=== PATIENT | male | born 1975 | race Hispanic/Latino ===

== ENCOUNTER → 2024-03-16 | Outpatient (CLI) | payer BC | LOC: M CARPUL 15:14 | PROVIDERS: ATTEND Internal Medicine Pulmonary Disease | DX: R05.9 Cough, unspecified (principal) ==

== ENCOUNTER → 2024-03-25 | Outpatient (CLI) | payer BC ==
[~2024-03-25] MED LIST: METHACHOLINE KIT (6 VIAL.NEB PREMIX) INH ONE
== END ==
LOC: M CARPUL 03-23 14:50 → EDUNIT# 03-23 15:00 → M CARPUL 13:33
PROVIDERS: ATTEND Internal Medicine Pulmonary Disease
DX: R05.9 Cough, unspecified (principal)
CPT/HCPCS: 94070; J7674

== ENCOUNTER → 2024-05-12 | Outpatient (CLI) | payer BC | LOC: M SLEEP HO 05-05 11:12 | PROVIDERS: ATTEND Internal Medicine Pulmonary Disease | DX: G47.33 Obstructive sleep apnea (adult) (pediatric) (principal) ==